=== PATIENT | male | born 1980 | race Caucasian/White ===

== ENCOUNTER → 2021-07-21 | Outpatient (CLI) | payer BC ==
--- NOTE | 2021-07-21 17:30 | CONS ---
CONSULTATION DATE OF SERVICE: 07/21/2021 This 40-year-old gentleman has [facility] for possible obstructive sleep apnea-hypopnea syndrome. HISTORY OF PRESENT ILLNESS/SLEEP-WAKE EVALUATION: Patient's usual sleep schedule is from 8 or 9 p.m. until 4 a.m. on weekdays and from 9 p.m. to 10 a.m. on weekends. He does have problems with falling asleep and has a TV set in the bedroom. He usually sleeps on the side position. He has extremely loud snoring and witnessed episodes of stopped breathing during sleep, according to his . He wakes up from sleep 3 or more times with panic attacks, gasping for air, sweating, and episodes of nocturia. No history of hypnagogic hallucinations, sleep paralysis or cataplexy. In the morning the patient wakes up tired, has difficulties paying attention, falling asleep during the day. He has problems with concentration, irritability, depression, anxiety, claustrophobia. [place] Sleepiness Scale is 5. The patient sometimes takes a nap around noon or 5 p.m. and feels refreshed after naps. No vivid dreams during naps. PAST MEDICAL HISTORY: Positive for hypertension, allergies, anxiety, sinus problems, headaches. MEDICATIONS: 1. Naproxen 500 mg once a day. 2. Zyrtec once a day. 3. Hydrochlorothiazide 12.5 mg once a day. 4. Citalopram 40 mg once a day. 5. Klonopin once a day. PAST SURGICAL HISTORY: Fatty tumor removed from the forehead. Surgery on left middle finger, left thumb. SOCIAL HISTORY: Positive for smoking in the past. Alcohol consumption rarely. FAMILY HISTORY: Hypertension, stroke, snoring, cancer, insomnia, thyroid problems, acid reflux. REVIEW OF SYSTEMS: Loud snoring, multiple awakenings from sleep. No fevers. No double vision. No recent chest pain. No shortness of breath. No abdominal pain. No bleeding episodes. No blood in the urine. No seizure episodes. PHYSICAL EXAMINATION: GENERAL: Pleasant gentleman without distress. VITAL SIGNS: BP 156/99, HR 86, RR 16, height 5 feet 10 inches, weight 328.2 pounds, body mass index 47, temperature 97.5, oxygen saturation at room air 95%. HEENT: PERRLA, EOMI, evaluation of oropharynx showed tongue protrudes midline. Low position of soft palate; Mallampati III. NECK: Supple, no JVD. Thyroid is not palpable. Neck is wide; 20-3/4 inches in circumference. LUNGS: Clear to percussion and to auscultation. Good air exchange. No wheezing or rhonchi. HEART: S1, S2 regular. No murmurs, gallops, or rubs. ABDOMEN: Obese. EXTREMITIES: No clubbing or cyanosis. TREE SURGEON HELPER: Awake, alert, and oriented X3. Cranial nerves 2 to 7 intact. There is no fasciculation or atrophy. noted. No focal deficits observed. IMPRESSION: 1. Loud snoring, witnessed episodes of stopped breathing during sleep, small oropharyngeal air space, wide neck, 20-3/4 inches in circumference; obstructive sleep apnea-hypopnea syndrome. 2. Obesity; body mass index 47. 3. Hypertension. 4. Sinus problems. 5. Headaches. 6. Allergies. 7. Anxiety. PLAN: 1. Polysomnography for evaluation of patient's breathing during sleep. 2. CPAP/BiPAP titration if sleep study confirms obstructive sleep apnea-hypopnea syndrome. 3. Preferable position during sleep on the side. 4. No driving if patient feels any sleepiness. 5. I will see patient for follow up visit to explain results of testing and following plan. Thank you very much for referring this patient for consultation. Sincerely, Xander Young MD, PhD, FAASM Diplomat of [place] [employer] Sleep Medicine Board of [place] [employer] Technician of [facility] [employer] MMODL / STARN: [id number] /
== END ==
LOC: SLEEP 15:40
PROVIDERS: ATTEND Internal Medicine
DX: G47.33 Obstructive sleep apnea (adult) (pediatric) (principal); I10 Essential (primary) hypertension; F41.9 Anxiety disorder, unspecified; T78.40XA Allergy, unspecified, initial encounter; E66.9 Obesity, unspecified; Z68.42 Body mass index [BMI] 45.0-49.9, adult; J34.9 Unspecified disorder of nose and nasal sinuses
CPT/HCPCS: 99202